=== PATIENT | female | born 1970 | race Caucasian/White ===

== ENCOUNTER 2018-12-19 07:35 | Emergency (ER) | payer BC | END 2018-12-19 08:12 | disposition home or self-care (01) | LOC: FTE 07:35 | DX: K21.9 Gastro-esophageal reflux disease without esophagitis (principal) | CPT/HCPCS: 99283; Z7502 ==

== ENCOUNTER 2019-04-21 17:18 | Emergency (ER) | payer BC | END 2019-04-21 18:36 | disposition home or self-care (01) | LOC: FTE 18:36 | DX: R21 Rash and other nonspecific skin eruption (principal) | CPT/HCPCS: 99282; Z7502 ==